=== PATIENT | female | born 1945 | race Caucasian/White ===

== ENCOUNTER 2017-10-25 05:00 | Inpatient (IN) ==
--- NOTE | 2017-10-25 05:20 | ERNOTE ---
Lower Extremity HPI - Narrative Date of Service: 10/25/17 - General Lower Extremities Pain: hip: left Time Seen by Provider: 10/25/17 05:15 Source: patient - Immun/Allergies/Home Medications Immunizations: IMMUNIZATION HX Immunizations Up to Date Yes History of Influenza Vaccine Yes Hx Pneumococcal Vaccination Yes Allergies/Adverse Reactions: Allergies Allergy/AdvReac Type Severity Reaction Status Date / Time morphine Allergy Verified 10/25/17 05:09 Home Medications: HOME MEDICATIONS Acetaminophen [Tylenol] 650 mg PO Q4H PRN 10/25/17 [Last Taken Unknown] Aspirin 325 mg PO DAILY 10/25/17 [Last Taken Unknown] Furosemide [Lasix] 20 mg PO DAILY 10/25/17 [Last Taken Unknown] Gabapentin 300 mg PO DAILY 10/25/17 [Last Taken Unknown] Gabapentin 400 mg PO HS 10/25/17 [Last Taken Unknown] Lisinopril [Prinivil] 10 mg PO DAILY 10/25/17 [Last Taken Unknown] Metoprolol Tartrate [Lopressor] 25 mg PO BID 10/25/17 [Last Taken Unknown] Propylthiouracil 100 mg PO BID 10/25/17 [Last Taken Unknown] Simvastatin 20 mg PO HS 10/25/17 [Last Taken Unknown] oxyCODONE HCL/ACETAMINOPHEN [Percocet 5-325 mg Tablet] 1 tab PO Q6H PRN [Last Taken Unknown] - History of Present Illness Narrative: 71-year-old female comes to the emergency department as a transfer from [place] emergency department. The patient has a subcapital left hip fracture. Apparently earlier today yesterday, the patient fell onto concrete. He was actually briefly ambulatory afterwards but then refused to get up due to severe pain. All laboratory testing is begun prior to the patient arriving in our emergency department. She did not hit her head or lose consciousness. She has no complaints other than the left hip. The patient is deaf. The patient's daughter is here and they have a way of communicating with her daughter enunciating very clearly with her lips for lip breathing as well as some sign language. History is limited by the language communication barrier, however comprehensive evaluation was done at outside hospital Review of Systems - Review of Systems Constitutional: Present: no symptoms reported EYE: Present: no symptoms reported ENT: Present: no symptoms reported Respiratory: Present: no symptoms reported Cardiology: Present: no symptoms reported Gastrointestinal/Abdominal: Present: no symptoms reported Genitourinary: Present: no symptoms reported Musculoskeletal: Present: See HPI Skin: Present: no symptoms reported Neurological: Present: no symptoms reported Endocrine: Present: no symptoms reported Hematologic/Lymphatic: Present: no symptoms reported Psych: Present: no symptoms reported All Other Systems: All systems neg except as marked - Patient's Past Medical History Patient History - Medical: Anxiety, Cataracts, Chronic Pain, Hypothyroidism Patient History - Cardiac/Respiratory: COPD, Hypertension, Hyperlipidemia Patient History - Cancer: No Hx of Cancer - Social History Smoking Status: Former smoker Alcohol Use: none Drug Use: none - Immunizations Immunizations Up to Date: Yes Hx Pneumococcal Vaccination: Yes History of Influenza Vaccine: Yes Physical Exam - Physical Exam General Appearance: Present: wd/wn, alert, no apparent distress Head Exam: Present: normal inspection, no evidence of injury Ears, Nose, Throat: Present: normal ENT inspection Neck: Present: normal inspection, nontender Respiratory: Present: no respiratory distress, lungs clear Cardiovascular/Chest: Present: regular rate, rhythm, no murmur Gastrointestinal/Abdominal: Present: normal bowel sounds, nontender, nondistended, soft Rectal Exam: Present: deferred Pelvic Exam: Present: deferred Back Exam: Present: normal inspection, no vertebral tenderness Extremity Exam: Present: other - patient has pain when attempting to move the left hip. Distal able to wiggle her toes and ankle. She doesn't want to move her knee due to pain. No contusions are noted. Distal neurovascular is intact. Neurological Exam: Present: alert, oriented, normal mood/affect, no motor/ sensory deficits, other - patient is deaf Skin Exam: Present: normal color, warm/dry Lymphatic Exam: Present: no adenopathy ED Progress - Vital Signs Patient's Vital Signs:: I have reviewed the patient's vital signs. Vital Signs: Vital Signs 10/25/17 05:03 Temperature 37.3 C Pulse Rate 64 Respiratory 14 Rate Blood Pressure 167/59 O2 Sat by Pulse 95 Oximetry - Progress/Reassessment Chief Complaint: Hip Pain/Injury Plan - Plan Plan: Per the report, Dr. Cohen would like the patient admitted to medicine. Put in a consult for him. I've notified face. She is coming down to see the patient. Departure Clinical Impression: Hip fracture - Departure Disposition: Still a patient Condition: Good Referrals: Levon Wolfe MD [Primary Care Provider] -
[2017-10-25 05:55] LABS: Hematocrit 38.6 % (37.0-47.0); Mean Cell Volume 88.5 fl (78-100); Mean Corpuscular Hemoglobin 29.8 pg (27-31); Mean Corpuscular Hgb Conc 33.7 g/dl (32-36); Mean Platelet Volume 9.6 fl (6.0-9.5); Neutrophil # 5.3 K/mm3 (1.3-6.0); Neutrophil % 66.3 % (42-75.0); Platelet Count 160 K/mm3 (150-450); Red Blood Count 4.36 M/mm3 (4.2-5.4); Red Cell Distribution Width 12.5 % (11.5-14.0); White Blood Count 7.9 K/mm3 (4.0-10.5)
--- NOTE | 2017-10-25 06:12 | HP ---
Chief Complaint - Chief Complaint Date of Service: 10/25/17 Time of Service: 05:57 Chief Complaint: 'Fall, LT hip pain'. Source of HPI -Pt; unobtainable- language barrier, Pt's daughter and POA- Shagufta. History of Present Illness: Mrs. Luis is a 71-yr-old WF pt of Dr. Levon Wolfe in [place]. PMH is significant for: COPD (oxygen dependent on 2 L at night), HTN, HLD, Hypothyroidism & NSTEMI. History is provided by daughter Shagufta who is also pt' s POA as pt is deaf; since and her understanding of sign language gestures is limited. She states that pt fell on a concrete floor sometime between 12pm & 4 pm on 10/24/17. Family member assisted her to the chair. She still managed to ambulate slowly with the walker but complained of LT hip pain. Pt was inconvincible about being taken to the ED. She was unable to ambulate the second time she tried to and that is she was taken to the [facility]. There was no of loss of consciousness with fall and Shagufta denies pt hitting her head on surface/object. Imaging done at the [facility] involved CT of thw Pelvis which showed LT Femoral Neck Fracture. Dr Chris Soares was contacted by the [facility] and pt was transferred to the [facility] with tentative plan for surgical repair today. Labs completed at [facility] involve UA only which was negative of infection. Pt will be admitted inpatient due to a surgical procedure that requires yun/post operative cares. - Patient's Past Medical History Patient History - Medical: Anxiety, Cataracts, Chronic Pain, Hypothyroidism Patient History - Cardiac/Respiratory: COPD, Hypertension, Hyperlipidemia Patient History - Cancer: No Hx of Cancer - Family History Father Family History - Medical: Family History - Cardiac/Respiratory: COPD Mother Family History - Medical: Family History - Cardiac/Respiratory: Myocardial Infarction - Social History Living Situations: home Abuse History: No History of abuse Psych History: No pertinent hx Does anyone smoke in the home?: No Smoking Status: Former smoker - quit smoking 15 yrs ago. Have you smoked in the past 12 months: No Alcohol Use: none Drug Use: none - Immunizations Immunizations Up to Date: Yes Hx Pneumococcal Vaccination: Yes History of Influenza Vaccine: Yes Review Of Systems (GEN) - Review of Systems Additional Comments: ROS unobtainable due language communication barrier. Allergies/Adverse Reactions: Allergies Allergy/AdvReac Type Severity Reaction Status Date / Time morphine Allergy Mild drops Verified 10/25/17 06:56 blood pressure Home Medications: HOME MEDICATIONS Acetaminophen [Tylenol] 650 mg PO Q4H PRN 10/25/17 [Last Taken Unknown] Aspirin 325 mg PO DAILY 10/25/17 [Last Taken Unknown] Furosemide [Lasix] 20 mg PO DAILY 10/25/17 [Last Taken Unknown] Gabapentin 300 mg PO DAILY 10/25/17 [Last Taken Unknown] Gabapentin 400 mg PO HS 10/25/17 [Last Taken Unknown] Lisinopril [Prinivil] 10 mg PO DAILY 10/25/17 [Last Taken Unknown] Metoprolol Tartrate [Lopressor] 25 mg PO BID 10/25/17 [Last Taken Unknown] Propylthiouracil 100 mg PO BID 10/25/17 [Last Taken Unknown] Simvastatin 20 mg PO HS 10/25/17 [Last Taken Unknown] oxyCODONE HCL/ACETAMINOPHEN [Percocet 5-325 mg Tablet] 1 tab PO Q6H PRN [Last Taken Unknown] Exam - Exam Vital Signs: Vital Signs - Last Taken Temp 37.3 C 10/25/17 05:03 Pulse 64 10/25/17 05:03 Resp 14 10/25/17 05:03 BP 167/59 10/25/17 05:03 Pulse Ox 95 10/25/17 05:03 Constitutional: Present: Alert, No distress, Elderly ENT Exam: Present: other - Legally Deaf. 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 Neck: Present: non-tender, full range of motion, supple Back Exam: Present: normal inspection Respiratory: Present: chest non-tender, lungs clear Cardiovascular/Chest: Present: normal peripheral pulses, regular rate, rhythm, no chest tenderness Abdomen: Present: Normal bowel sounds, soft, nontender /Rectal: Present: Exam deferred Extremity: Present: normal range of motion, other - Tender on LT hip Skin Exam: Present: cool/dry, pallor Lymphatic: Present: no adenopathy Neurologic: Present: alert, normal mood/affect Appearance: Present: appropriate appearance, appropriate insight Eye contact: Present: cooperative, good eye contact Thoughts: Present: no apparent hallucination Assessment/Plan - Assessment/Plan (1) Fracture of femoral neck, left Assessment: Pt is a 71-yr WF who had a fall and sustained LT femoral Neck fracture on 2017. Laboratory studies at the ED involving CBC, BMP were mostly unremarkable.Troponin and the EKG were negative of ACS/KS. The CXR does not show any acute findings.( official radiology report is pending). According to [employer], she has a class II risk which carries a 0.9% chance of a major cardiac cardiac event yun/postoperatively. She is clear to proceed with surgery as the the benefits outweighs the risks of not doing any, and it will restore her functional ability. Will manage her pain, keep NPO, provide IVF hydration and Ortho is already consulted on pt's case. Problem: Acute (2) Acute kidney failure Assessment: No other baseline avail. Provide IVF hydration. Hold Lasix. BMP in am. Laboratory Tests 10/25/17 05:45 Creatinine 1.55 H Problem: Acute (3) HTN (hypertension) Assessment: Control Pain, Continue Lisinopril & Metoprolol. Problem: Chronic Qualifiers: Hypertension type: essential hypertension Qualified Code(s): I10 - Essential (primary) hypertension (4) COPD (chronic obstructive pulmonary disease) Assessment: Stable- Monitor closely postoperatively. Continue 2 lnc Problem: Chronic (5) HLD (hyperlipidemia) Assessment: Stable- On Zocor. Problem: Chronic (6) Hypothyroidism Assessment: Stable- Continue Propythyracil Problem: Chronic
[2017-10-25 06:19] LABS: Anion Gap 9.8 mmol/L (6.8-13.8); BUN/Creatinine Ratio 27.1 (9.0-21.6); Blood Urea Nitrogen 42 mg/dL (3-23); Calcium * 8.8 mg/dL (7.9-10.9); Chloride 100 mmol/L (97-106); Estimated Creat Clear 26.3; Glucose * 108 mg/dL (70-110); Potassium 3.8 mmol/L (3.4-4.6); Sodium 142 mmol/L (132-142); Troponin I Less than 0.017 ng/ml (0.00-0.10)
[2017-10-25] MEDS ORDERED: ONDANSETRON HCL/PF 2 MG/ML VIAL IV PRN (06:32)
[2017-10-25] MEDS ORDERED: HYDROmorphone HCL 2 MG/ML VIAL IV PRN (06:34)
[2017-10-25] MEDS ORDERED: oxyCODONE HCL/ACETAMINOPHEN 1 TAB TABLET PO PRN ×2 (06:42→11:57)
[2017-10-25] MEDS ORDERED: ACETAMINOPHEN 325 MG TABLET PO PRN (06:42)
[2017-10-25] MEDS: NORMAL SALINE 1,000 ML IV PRN ×3 (08:09→22:29)
[2017-10-25 08:11] LABS: Prothrombin Time (Patient) 10.3 Seconds (9.0-11.0)
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
[2017-10-25 08:14] LABS: INR 1.03 INR (0.90-1.10)
[2017-10-25] MEDS: ASPIRIN 325 MG TABLET.DR PO SCH (08:20)
[2017-10-25] MEDS: PROPYLTHIOURACIL 50 MG TABLET PO SCH ×2 (08:20→20:53)
[2017-10-25] MEDS: GABAPENTIN 300 MG CAPSULE PO SCH (08:20)
--- NOTE | 2017-10-25 09:02 | PN ---
Progess Note - Interim Date: 10/25/17 Time: 08:59 Narrative: 10/25/17 08:59 I discussed the plan of treatment with the patient and her family. Given her age, activity level, and non-displaced nature of the fracture, I recommended percutaneous screw fixation. I counseled them on the risks of surgery including , but not limited to, infection, bleeding, neurovascular injury, malunion/ nonunion, implant failure/screw cut out, arthrosis, persistent pain, need for additional procedures, and risks with anesthesia. After discussion, they wish to proceed with surgical treatment. We will take her to the OR this morning for percutaneous cannulated screw fixation of her L non-displaced subcapital femoral neck fracture. She is NPO since midnight. Chau Stuart MD
[2017-10-25] MEDS: LISINOPRIL 10 MG TABLET PO SCH (09:06)
[2017-10-25] MEDS: METOPROLOL TARTRATE 25 MG TABLET PO SCH ×2 (09:12→20:53)
[2017-10-25] MEDS ORDERED: RINGER'S SOLUTION,LACTATED 800 ML IV ONE (09:40)
[2017-10-25] MEDS ORDERED: ceFAZolin SODIUM 1 GM VIAL IV PRN (10:00)
[2017-10-25] MEDS ORDERED: BUPIVACAINE HCL/EPINEPHRINE 50 ML VIAL IJ ONE (10:44)
--- NOTE | 2017-10-25 10:54 | OR ---
Operative Report - Dictated Report Narrative: Date: 10/25/2017 Surgeon: Chau Stuart M.D. [facility] Director: Rush Sánchez PA-C Preoperative diagnosis: Left nondisplaced, subcapital femoral neck fracture Postoperative diagnosis: Left nondisplaced, subcapital femoral neck fracture Operations and procedures: 1. Percutaneous cannulated screw fixation of left nondisplaced, subcapital femoral neck fracture 2. Intraoperative interpretation of radiographs Anesthesia: Gen. plus local Specimens: None Estimated blood loss: 50 Milliliters Retained implants: [employer] 7.0 mm cannulated screws and washers 3 Complications: None Indications for procedure: Colleen is a 71-year-old female community ambulator who injured the left leg after a fall from standing height onto concrete. She was initially evaluated at an outside ER and they contacted us for further management. She was then transferred to [facility] and admitted to the floor. Once the medical provider felt that they were stable for surgical treatment, the risks and benefits alternatives were discussed. The risks of , blood clots , bleeding, infection, nerve/tendon/blood vessel injury, malunion, nonunion, failure of implants, painful implants, arthrosis, and need for additional procedures were discussed. The extremity was marked and consent was obtained on the floor. Procedure: After marking the operative extremity on the floor, the patient was taken to the operating room. A timeout was performed. IV antibiotics consisting of 1 g of Ancef was administered. A spinal anesthetic was induced by anesthesia, and the patient was then placed onto a fracture table with a well-padded perineal post. The non-operative leg was placed in a well-padded well leg lópez in lithotomy position with an SCD on the leg. The operative leg was placed in a well-padded traction boot. Preliminary images were attained utilizing C-arm in both the AP and lateral views. This confirmed a nondisplaced subcapital femoral neck fracture and that we had obtained adequate visualization of the proximal femur. Next the hip was then prepped and draped in a standard sterile fashion. Next, guidewires for 7.0 mm cannulated screws were placed percutaneously through a small 3 cm incision in an inverted triangle pattern with good pin spread in the femoral neck. The position of our guidewires was confirmed on AP and lateral C-arm images. His were measured and then sequentially drilled. Three 7.0 mm cannulated screws of appropriate length and washers were advanced over each guidewire and hand tightened. Appropriate screw length and position was confirmed on AP and lateral C-arm images. At this point we felt we had adequately stabilized the fracture. Final images were obtained. The hip was placed through range of motion and showed no crepitance. The wound was copiously irrigated with normal saline. The subcutaneous tissue was closed with 3-0 Vicryl, and the skin was closed with sebastián. Sterile dressings of Xeroform, 4 x 4s, and tegaderm were applied. All sponge, sharp, and instrument counts were correct prior to closing the wounds. The patient was then awoken and transferred to the postanesthesia care unit in stable condition.
[2017-10-25] MEDS ORDERED: RINGER'S SOLUTION,LACTATED 1,000 ML IV ONE (10:55)
[2017-10-25] MEDS ORDERED: ACETAMINOPHEN 500 MG TABLET PO PRN (11:54)
[2017-10-25] MEDS ORDERED: PROMETHAZINE HCL 5 MG in DEXTROSE 5 % IN WATER 50 ML IV PRN ×2 (11:54)
[2017-10-25] MEDS ORDERED: MAGNESIUM HYDROXIDE 30 ML UDC PO PRN (11:54)
[2017-10-25] MEDS ORDERED: MAG HYDROX/ALUMINUM HYD/SIMETH 30 ML UDC PO PRN (11:54)
[2017-10-25] MEDS ORDERED: GABAPENTIN 400 MG CAPSULE PO SCH (21:00)
[2017-10-25] MEDS ORDERED: SIMVASTATIN 20 MG TABLET PO SCH (21:00)
[2017-10-25] MEDS ORDERED: SENNOSIDES/DOCUSATE SODIUM 1 TAB TABLET PO SCH (21:00)
[2017-10-25] MEDS: oxyCODONE HCL/ACETAMINOPHEN 1 TAB TABLET PO PRN (21:51)
[2017-10-26] MEDS: oxyCODONE HCL/ACETAMINOPHEN 1 TAB TABLET PO PRN ×4 (04:49→18:04)
[2017-10-26] MEDS: NORMAL SALINE 1,000 ML IV PRN (06:38)
[2017-10-26] MEDS ORDERED: FUROSEMIDE 20 MG TABLET PO SCH (09:00)
[2017-10-26] MEDS: PROPYLTHIOURACIL 50 MG TABLET PO SCH (09:01)
[2017-10-26] MEDS: METOPROLOL TARTRATE 25 MG TABLET PO SCH (09:01)
[2017-10-26] MEDS: GABAPENTIN 300 MG CAPSULE PO SCH (09:01)
[2017-10-26] MEDS: ASPIRIN 325 MG TABLET.DR PO SCH (09:01)
[2017-10-26] MEDS: LISINOPRIL 10 MG TABLET PO SCH (09:02)
[2017-10-26] MEDS ORDERED: ENOXAPARIN SODIUM 30 MG/0.3 ML SYRG SC SCH (10:55)
[2017-10-26 14:25] LABS: Hematocrit 35.6 % (37.0-47.0); Hemoglobin 11.7 gm/dL (12.5-16.0); Mean Cell Volume 92.5 fl (78-100); Mean Corpuscular Hemoglobin 30.4 pg (27-31); Mean Corpuscular Hgb Conc 32.9 g/dl (32-36); Mean Platelet Volume 9.2 fl (6.0-9.5); Neutrophil # 4.4 K/mm3 (1.3-6.0); Neutrophil % 64.7 % (42-75.0); Platelet Count 120 K/mm3 (150-450); Red Blood Count 3.85 M/mm3 (4.2-5.4); Red Cell Distribution Width 12.6 % (11.5-14.0); White Blood Count 6.8 K/mm3 (4.0-10.5)
--- NOTE | 2017-10-26 14:30 | PN ---
Subjective - Date and Time Seen Date: 10/26/17 Time: 14:00 Objective Objective Narrative: She reports no acute events overnight. Discussed with daughter who is POA and billet header due to patient is deaf and partial blind. She reports her pain is well controlled with oral pain medication. She has been up transferring and has been able to walk with minimal assistance and a walker with PT. She has been eat normal diet. - Vitals Vitals: Last Vital Signs Temp 36.8 C 10/26/17 14:11 Pulse 55 L 10/26/17 14:11 Resp 18 10/26/17 14:11 BP 145/54 10/26/17 14:11 Pulse Ox 90 10/26/17 14:11 - Abnormal Lab Findings Abnormal Lab Findings: Laboratory Last Values WBC 7.9 K/mm3 (4.0-10.5) 10/25/17 05:45 RBC 4.36 M/mm3 (4.2-5.4) 10/25/17 05:45 Hgb 13.0 gm/dL (12.5-16.0) 10/25/17 05:45 Hct 38.6 % (37.0-47.0) 10/25/17 05:45 MCV 88.5 fl (78-100) 10/25/17 05:45 MCH 29.8 pg (27-31) 10/25/17 05:45 MCHC 33.7 g/dl (32-36) 10/25/17 05:45 RDW 12.5 % (11.5-14.0) 10/25/17 05:45 Plt Count 160 K/mm3 (150-450) 10/25/17 05:45 MPV 9.6 fl (6.0-9.5) H 10/25/17 05:45 Immature Gran % (Auto) 0.40 % (0.001-0.429) 10/25/17 05:45 Immature Gran # (Auto) 0.03 K/mm3 (0.000-0.0310) 10/25/17 05:45 Neutrophils % 66.3 % (42-75.0) 10/25/17 05:45 Lymphocytes % 20.2 % (20-51) 10/25/17 05:45 Monocytes % 10.2 % (0.0-9) H 10/25/17 05:45 Eosinophils % 2.4 % (0.0-3.0) 10/25/17 05:45 Basophils % 0.5 % (0.0-1.0) 10/25/17 05:45 Nucleated RBC % 0.0 k/mm3 (0-1) 10/25/17 05:45 Neutrophils # 5.3 K/mm3 (1.3-6.0) 10/25/17 05:45 Lymphocytes # 1.60 k/mm3 (1.5-3.5) 10/25/17 05:45 Monocytes # 0.8 k/mm3 (0.0-1.0) 10/25/17 05:45 Eosinophils # 0.2 k/mm3 (0.0-0.7) 10/25/17 05:45 Absolute Basophils 0.0 k/mm3 (0.0-0.1) 10/25/17 05:45 PT 10.3 Seconds (9.0-11.0) 10/25/17 05:45 INR (Anticoag Therapy) 1.03 INR (0.90-1.10) 10/25/17 05:45 Sodium 142 mmol/L (132-142) 10/25/17 05:45 Plasma Sodium 142 mmol/L (130-142) 10/25/17 05:45 Potassium 3.8 mmol/L (3.4-4.6) 10/25/17 05:45 Chloride 100 mmol/L (97-106) 10/25/17 05:45 Carbon Dioxide 36.0 mmol/L (24-32.6) H 10/25/17 05:45 Anion Gap 9.8 mmol/L (6.8-13.8) 10/25/17 05:45 BUN 42 mg/dL (3-23) H 10/25/17 05:45 Creatinine 1.55 mg/dL (0.4-1.4) H 10/25/17 05:45 Est GFR (Non-Af Amer) 35 mL/min (60-130) L 10/25/17 05:45 BUN/Creatinine Ratio 27.1 (9.0-21.6) H 10/25/17 05:45 Random Glucose 108 mg/dL (70-110) 10/25/17 05:45 Calcium 8.8 mg/dL (7.9-10.9) 10/25/17 05:45 Troponin I Less than 0.017 ng/ml (0.00-0.10) 10/25/17 05:45 - Exam Constitutional: Present: Alert, No distress Respiratory: Present: no respiratory distress Extremity: Present: other - LLE--> bandages c/d/i, SILT, PF/DF 4+/5, distal pulses 2+, mild ttp over greater trochanter, mild edema of LLE Assessment/Plan Plan Narrative: -71 y/o female presents s/p fall with a left hip femoral neck fracture. She is s /p percutanous fixation of left femoral neck fracture with Dr. Stuart on 10/25/17 - Oral pain medication PRN - PT/OT progress as tolerated - WBAT with walker - DVT: lovenox for first 4 weeks post-op, then transition to 325mg aspirin for 4 weeks - PO diet as tolerated - Discharge home with home health, will f/u in 2 weeks in orthopedic outpatient office with Dr. Stuart, she will be going home with daughter with is RN and is billet header. - Problems/Diagnosis (1) Fracture of femoral neck, left Problem: Acute Qualifiers: Encounter type: initial encounter Fracture type: closed Qualified Code(s) : S72.002A - Fracture of unspecified part of neck of left femur, initial encounter for closed fracture
[2017-10-26 14:39] LABS: Anion Gap 9.9 mmol/L (6.8-13.8); BUN/Creatinine Ratio 16.2 (9.0-21.6); Bilirubin, Total 1.1 mg/dL (0.0-1.1); Ca. Corrected For Albumin 8.9 mg/dL (8.4-10.2); Calcium * 8.4 mg/dL (7.9-10.9); Carbon Dioxide 31.8 mmol/L (24-32.6); Potassium 3.7 mmol/L (3.4-4.6); Total Protein 6.8 gm/dL (6.2-8.2)
--- NOTE | 2017-10-26 15:12 | DS ---
(1) Fracture of femoral neck, left Problem: Acute Qualifiers: Encounter type: initial encounter Fracture type: closed Qualified Code(s) : S72.002A - Fracture of unspecified part of neck of left femur, initial encounter for closed fracture (2) Dehydration Problem: Acute (3) COPD (chronic obstructive pulmonary disease) Diagnosis(s): on 2L at HS. Problem: Chronic (4) HLD (hyperlipidemia) Problem: Chronic (5) HTN (hypertension) Problem: Chronic Qualifiers: Hypertension type: essential hypertension Qualified Code(s): I10 - Essential (primary) hypertension (6) Hyperthyroidism Problem: Chronic Description of Stay: DATE OF ADMISSION: 10/25/2017. DATE OF DISCHARGE: 10/26/2017. DIAGNOSTIC: NONE. DISCHARGE SUMMARY: Elmer Luis is a 71-year-old WF with a H/O HTN, HLD, CAD, COPD [ O2 at 2L at HS ], chronic pain hyperthyroidism, deafness in left ear, chronic pain who had a fall from standing height and sustained a LT femoral neck fracture. She was initially evaluated at [facility] and then transferred to [facility]. She was seen by Dr. Stuart and underwent cannulated screw fixation of LT nondisplaced subcapital femoral neck fracture[ see operative notes]. B UN/CR improved from 42/1.55[10/25/17] to 16/0.99[10/26/17 ] with IV fluids and holding furosemide indicating dehydration. Patient underwent physical therapy postoperatively. The daughter was present for interpretation. CBC and CMP were checked postoperatively. AST/ALTs at 76/78 which can be worked up as an outpatient basis. Patient discharged in a stable condition to home to be followed up by PCP and orthopedics. Greater than 30 minutes was spent with the patient 1. Discussing test results, plan of care and patient education. 2. Reconciliation of medications, discharge plans, preparing and dictating discharge summary. Procedures Performed: see notes below List Procedures: Date: 10/25/2017 Surgeon: Chau Stuart M.D. Carnival Worker: Rush Sánchez PA-C Preoperative diagnosis: Left nondisplaced, subcapital femoral neck fracture Postoperative diagnosis: Left nondisplaced, subcapital femoral neck fracture Operations and procedures: 1. Percutaneous cannulated screw fixation of left nondisplaced, subcapital femoral neck fracture 2. Intraoperative interpretation of radiographs Anesthesia: Gen. plus local Specimens: None Estimated blood loss: 50 Milliliters Retained implants: [employer] 7.0 mm cannulated screws and washers 3 Complications: None Indications for procedure: Colleen is a 71-year-old female community ambulator who injured the left leg after a fall from standing height onto concrete. She was initially evaluated at an outside ER and they contacted us for further management. She was then transferred to [facility] and admitted to the floor. Once the medical provider felt that they were stable for surgical treatment, the risks and benefits alternatives were discussed. The risks of , blood clots , bleeding, infection, nerve/tendon/blood vessel injury, malunion, nonunion, failure of implants, painful implants, arthrosis, and need for additional procedures were discussed. The extremity was marked and consent was obtained on the floor. Procedure: After marking the operative extremity on the floor, the patient was taken to the operating room. A timeout was performed. IV antibiotics consisting of 1 g of Ancef was administered. A spinal anesthetic was induced by anesthesia, and the patient was then placed onto a fracture table with a well-padded perineal post. The non-operative leg was placed in a well-padded well leg lópez in lithotomy position with an SCD on the leg. The operative leg was placed in a well-padded traction boot. Preliminary images were attained utilizing C-arm in both the AP and lateral views. This confirmed a nondisplaced subcapital femoral neck fracture and that we had obtained adequate visualization of the proximal femur. Next the hip was then prepped and draped in a standard sterile fashion. Next, guidewires for 7.0 mm cannulated screws were placed percutaneously through a small 3 cm incision in an inverted triangle pattern with good pin spread in the femoral neck. The position of our guidewires was confirmed on AP and lateral C-arm images. His were measured and then sequentially drilled. Three 7.0 mm cannulated screws of appropriate length and washers were advanced over each guidewire and hand tightened. Appropriate screw length and position was confirmed on AP and lateral C-arm images. At this point we felt we had adequately stabilized the fracture. Final images were obtained. The hip was placed through range of motion and showed no crepitance. The wound was copiously irrigated with normal saline. The subcutaneous tissue was closed with 3-0 Vicryl, and the skin was closed with sebastián. Sterile dressings of Xeroform, 4 x 4s, and tegaderm were applied. All sponge, sharp, and instrument counts were correct prior to closing the wounds. The patient was then awoken and transferred to the postanesthesia care unit in stable condition. Results and Findings: Laboratory Tests 10/25/17 10/26/17 05:45 14:15 WBC 7.9 6.8 Hgb 13.0 11.7 L Hct 38.6 35.6 L Plt Count 160 120 L 10/25/17 10/26/17 05:45 14:15 Plasma Sodium 142 141 Potassium 3.8 3.7 Chloride 100 103 Carbon Dioxide 36.0 H 31.8 BUN 42 H 16 D Creatinine 1.55 H 0.99 Est GFR (Non-Af Amer) 35 L 59 L D Random Glucose 108 113 Calcium 8.8 8.4 Calcium Adj for Albumin 8.9 Total Bilirubin 1.1 AST 76 H ALT 78 H Alkaline Phosphatase 104 Total Protein 6.8 Albumin 3.0 L 10/25/17 05:45 Troponin I Less than 0.017 Discharge Location: Home - with [facility] Disposition: Home Health Service Condition: Undetermined Discharge Diet: General/regular food, High Fiber Referrals: Levon Wolfe MD [Primary Care Provider] - Problem Oriented Discharge Instructions to Patient/Family: Hip Fracture Additional Patient Instructions (free text): NEW MEDICATIONS: Vitamin D3 2000 units daily with food[OTC medication for osteoporosis]. Lovenox/enoxaparin 30 mg subcutaneous daily[10/27/2017] for one month. Aspirin 325 mg starting daily[11/27/2017] for one month. Aspirin 81 mg by mouth daily[12/27/17] thereafter. DISCONTINUED MEDICATIONS: None. Please discuss with your provider if she needs further workup as she has abnormal liver function tests and requires workup for osteoporosis. [facility] new. Please call report and fax H&P, D/C summary, D/C orders including med list and face to face upon discharge. Call [phone] and ask for home health. Fax information to [phone]. Change dressing every 3 to 4 days, keep wound clean and dry. Replace current dressing with gauze and tape in 2 days. Lovenox for first 4 weeks then transition to 325 mg aspirin for 4 weeks. F/U with ortho in [address] Stuart on 11-09-17 @ 10:15am. F/U with PCP in [address] Wolfe in [place] on 11-26-17 @ 11:15am. Prescriptions (Any new or edited meds): Cholecalciferol (Vitamin D3) [Vitamin D3] 2,000 unit PO DAILY@1200 #100 Enoxaparin Sodium [Lovenox] 30 mg SC Q24H #30 disp.syrin Complete Home Medications List: Complete Home Medication List: Gabapentin 300 mg PO DAILY 10/25/17 Gabapentin 400 mg PO HS 10/25/17 Lisinopril [Prinivil] 10 mg PO DAILY 10/25/17 Metoprolol Tartrate [Lopressor] 25 mg PO BID 10/25/17 Propylthiouracil 100 mg PO BID 10/25/17 Simvastatin 20 mg PO HS 10/25/17 oxyCODONE HCL/ACETAMINOPHEN [Percocet 5-325 mg Tablet] 1 tab PO Q6H PRN Cholecalciferol (Vitamin D3) [Vitamin D3] 2,000 unit PO DAILY@1200 #100 Enoxaparin Sodium [Lovenox] 30 mg SC Q24H #30 disp.syrin 10/26/17
[2017-10-26 18:08] VITALS: BP 126/52
[2017-10-27] MEDS ORDERED: ENOXAPARIN SODIUM 30 MG/0.3 ML SYRG SC SCH (09:00)
== END 2017-10-26 18:18 | disposition home health service (06) | DRG 482 ==
LOC: ER 05:00 → MS 05:30
PROVIDERS: ADMIT Nurse Practitioner; ATTEND Internal Medicine
DX: Z99.81 Dependence on supplemental oxygen; E03.9 Hypothyroidism, unspecified; J44.9 Chronic obstructive pulmonary disease, unspecified; E78.5 Hyperlipidemia, unspecified; Y92.009 Unspecified place in unspecified non-institutional (private) residence as the place of occurrence of the external cause; Z79.82 Long term (current) use of aspirin; Z87.891 Personal history of nicotine dependence; I10 Essential (primary) hypertension; Z88.8 Allergy status to other drugs, medicaments and biological substances; H91.3 Deaf nonspeaking, not elsewhere classified; S72.012A Unspecified intracapsular fracture of left femur, initial encounter for closed fracture; W18.30XA Fall on same level, unspecified, initial encounter; E86.0 Dehydration
CPT/HCPCS: 36415; 71010; 71045; 73502; 76000; 80048; 80053; 84484; 85025; 85610; 93005; 97110; 97116; 97162; 97166; 99285